=== PATIENT | female | born 1985 | race Caucasian/White ===

== ENCOUNTER 2021-02-10 18:22 | Emergency (ER) | payer OTHER, SELFPAY ==
[2021-02-10 18:25] VITALS: PULSE 110; RESP 18; TEMP 37.3; O2SAT 100
[2021-02-10 18:50] LABS: Add Manual Diff / Slide Review NO; Basophils Absolute Auto 100 /uL (0-100); Basophils Percent Auto 0.5 % (0-2); Eosinophils Absolute Auto 100 /uL (0-450); Eosinophils Percent Auto 0.5 % (2-4); Hematocrit 40.7 % (36-46); Hemoglobin 14.4 g/dL (12.0-16.0); Lymphocytes Absolute Auto 3400 /uL (1100-4500); Lymphocytes Percent Auto 24.8 % (25-40); Mean Corpuscular HGB Conc 35.5 % (30-36); Mean Corpuscular Hemoglobin 30.5 PG (26-34); Mean Corpuscular Volume 85.8 fL (80-100); Monocytes Absolute Auto 700 /uL (0-900); Monocytes Percent Auto 5.2 % (3-14); Neutrophils Absolute Auto 9600 /uL (1500-7000); Platelet Count 501 X10^3/uL (150-400); Red Blood Cell Count 4.74 X10^6/uL (4.0-5.2); Red Cell Distribution Width 12.9 % (11.6-14.8); White Blood Cell Count 13.9 X10^3/uL (4.5-11.0)
[2021-02-10 19:04] LABS: Alanine Aminotransferase 57 IU/L (<35); Albumin 4.8 g/dL (3.5-5.0); Albumin Globulin Ratio 1.4 (1.0-2.8); Alkaline Phosphatase 71 U/L (38-126); Aspartate Aminotransferase 43 IU/L (14-36); BUN Creatinine Ratio 12.5 (6-22); Bilirubin Total 0.4 mg/dL (0.2-1.3); Blood Urea Nitrogen 8 mg/dL (7-17); Calcium 9.7 mg/dL (8.4-10.2); Carbon Dioxide 25 mmol/L (22-32); Chloride 104 mmol/L (98-107); Estimated Glomerular Filt Rate > 60.0 mL/min (>60); Globulin 3.5 g/dL (1.7-4.1); Glucose 97 mg/dL (70-100); HEMOLYSIS < 15 (0-50); Lipase 192 U/L (23-300); Potassium 3.8 mmol/L (3.4-5.1); Sodium 140 mmol/L (137-145); Total Protein 8.3 g/dL (6.3-8.2)
[2021-02-10 23:52] VITALS: BP 112/57; PULSE 104; RESP 20; TEMP 37; O2SAT 98
[2021-02-11] MEDS: SODIUM CHLORIDE 0.9% 1,000 ML 1000 ML IV
[2021-02-11] MEDS: HYDROMORPHONE 0.5 MG INJ IV
[2021-02-11] MEDS: ONDANSETRON 4 MG/2 ML INJ IV
--- NOTE | 2021-02-11 00:59 | ED.ABDPAIN ---
HPI - Abdominal Pain General Chief Complaint: Abdominal Pain Stated Complaint: Severe Low Back Pain, Burning Abd Pain Time Seen by Provider: 02/11/21 00:32 Source: patient Mode of arrival: Ambulatory History of Present Illness HPI narrative: Patient is a 35-year-old female thrombocytosis who presents with low back pain radiating around to her abdomen ongoing for the last 3 weeks. She was seen evaluated at urgent care she has blood work and CT done with contrast there was some concern for appendicitis at that time. However CT was negative blood work was reassuring and she was discharged home. She says since then she has had some intermittent loose stools sometimes diarrhea however the last 2 days has been soft and formed. She occasionally has some nausea. Today she has increasing lower abdominal pain which is a burning sensation up into her epigastric area. She has no numbness or tingling down her legs no changes in bowel or bladder incontinence she denies any fever or chills. She denies any painful urination but she does have frequent urination. She denies any vaginal discharge. She said that she previously had a placenta previa with her daughter she knew that there was something wrong and she was told frequently by physicians that there was nothing wrong so she is quite fearful that something may be happening. She says that she has taken Tylenol for pain she has only taken 2 once a day. She is quite fearful of taking any medication she has a strong family history of abuse including alcoholism drug addiction his she does not take anything. He has an IUD that is placed. Related Data Home Medications Medication Instructions Recorded Confirmed levonorgestrel 20 mcg/24 hours (7 INTRAUTERINE each 09/19/18 09/19/18 yrs) 52 mg intrauterine device (Mirena) Previous Rx's Medication Instructions Recorded hydrocodone 5 mg-acetaminophen 325 1 tab PO Q6H PRN #10 tab 02/11/21 mg tablet ondansetron 4 mg disintegrating 4 mg PO Q8H PRN #10 tab 02/11/21 tablet prednisone 20 mg tablet 20 mg PO DAILY #5 tab 02/11/21 Allergies Allergy/AdvReac Type Severity Reaction Status Date / Time latex [LATEX] Allergy Unknown Rash Unverified 06/23/17 12:11 minocycline [MINOCYCLINE] Allergy Unknown Nausea/Vomi Unverified 06/23/17 12:11 ting/Dizzin ess Review of Systems Review of Systems Narrative: GENERAL: Denies chills, fatigue, malaise, fever, sweats, travel HEENT: Denies sinus pain, ear pain, sore throat, difficulty swallowing, neck pain RESPIRATORY: Denies dyspnea, cough, wheezing, hemoptysis, sputum. CARDIOVASCULAR: Denies chest pain, palpitations, orthopnea, edema GASTROINTESTINAL: see HPI : Denies dysuria, frequency, incontinence, hematuria, urinary retention, flank pain. MUSCULOSKELETAL: Denies weakness, joint pain, or bony pain SKIN: No rash, no erythema, no pruritus NEUROLOGIC: Denies weakness, dizziness, headache, numbness, change in speech, confusion PSYCHIATRIC: No concerning psychosocial issues. 12 point review of systems is negative except for those stated above and HPI Patient History Surgical History (Updated 07/13/17 @ 05:48 by Conversion Provider) Status post laminectomy Family History (Updated 03/21/15 @ 00:00 by Conversion Provider) Father Age: 68 ETOH abuse Grandfather Stroke Grandfather Cancer Social History Smoking Status: Never smoker Smoking Status: Never smoker Exam Initial Vital Signs Initial Vital Signs: Vital Signs Temperature 99.1 F 02/10/21 18:25 Pulse Rate 110 H 02/10/21 18:25 Respiratory Rate 18 02/10/21 18:25 Pulse Oximetry 100 02/10/21 18:25 GENERAL: Tearful 35-year-old female HEENT: Head atraumatic,EOMI, pupils reactive, face symmetric, moist mucous membranes CARDIOVASCULAR: Regular rate and rhythm without murmurs, rubs or gallops. RESPIRATORY: Breath sounds equal bilaterally, no wheezes rales or rhonchi. ABDOMEN: Soft, nontender. Normoactive bowel sounds all 4 quadrants. No guarding or rebound. BACK: No vertebral tenderness no step-off. Mild lumbar pain EXTREMITIES: Normal range of motion, no clubbing or edema. Neurovascularly intact NEUROLOGICAL: Alert and oriented x4.Normal gait and speech. SKIN: Warm, dry, no laceration, no petechiae, no rashes or lesions. Course Orders Ordered: ED Orders 02/11/21 00:55 COVID19 -Nasal swab/Pre-Proc Stat 02/11/21 00:58 Procalcitonin Stat 02/11/21 01:04 CT abdomen pelvis w con Stat 02/11/21 01:11 Lactate (Lactic Acid) Stat Discontinued Medications Hydrocodone Bitart/Acetaminophen (Hydrocodone/Acet 5/325 Prepack) 1 bottle MISC SEEINSTR ONE Stop: 02/11/21 02:34 Last Admin: 02/11/21 02:52 Dose: 1 bottle Documented by: JOSE MANUEL Hydromorphone HCl (Hydromorphone 0.5 Mg Inj) 0.5 mg IV NOW ONE Stop: 02/10/21 23:52 Last Admin: 02/11/21 00:00 Dose: 0.5 mg Documented by: JOSE MANUEL Sodium Chloride (Normal Saline 0.9%) 1,000 mls @ 1,000 mls/hr IV BOLUS ONE Stop: 02/11/21 00:50 Last Infusion: 02/11/21 01:24 Dose: 0 mls/hr Documented by: JOSE MANUEL Admin: 02/11/21 00:00 Dose: 1,000 mls/hr Documented by: JOSE MANUEL Ketorolac Tromethamine (Ketorolac 30 Mg/Ml Vial) 15 mg IV NOW ONE Stop: 02/11/21 02:34 Last Admin: 02/11/21 02:52 Dose: 15 mg Documented by: JOSE MANUEL Ondansetron HCl (Ondansetron 4 Mg/2 Ml Inj) 4 mg IV NOW ONE Stop: 02/10/21 23:52 Last Admin: 02/11/21 00:00 Dose: 4 mg Documented by: JOSE MANUEL Ondansetron HCl (Ondansetron 4 Mg Odt Prepack) 1 bottle MISC SEEINSTR ONE Stop: 02/11/21 02:34 Last Admin: 02/11/21 02:52 Dose: 1 bottle Documented by: JOSE MANUEL Vital Signs Vital signs: Vital Signs - 8 hr 02/10/21 23:52 02/11/21 02:26 02/11/21 02:38 Temperature 98.6 F 98.9 F Pulse Rate 104 H 110 H Respiratory Rate 20 18 Blood Pressure 112/57 L 114/52 L Pulse Oximetry 98 97 MDM - Abdominal Pain Lab Data Result diagrams: 02/10/21 18:38 02/10/21 18:38 Labs: Lab Results 02/10/21 02/10/21 02/10/21 Range/Units 18:38 18:38 18:38 WBC 13.9 H (4.5-11.0) X10^3/uL RBC 4.74 (4.0-5.2) X10^6/uL Hgb 14.4 (12.0-16.0) g/dL Hct 40.7 (36-46) % MCV 85.8 (80-100) fL MCH 30.5 (26-34) PG MCHC 35.5 (30-36) % RDW 12.9 (11.6-14.8) % Plt Count 501 H (150-400) X10^3/uL Neut % (Auto) 69.0 (50-75) % Lymph % (Auto) 24.8 L (25-40) % [place] % (Auto) 5.2 (3-14) % Eos % (Auto) 0.5 L (2-4) % Baso % (Auto) 0.5 (0-2) % Neut # (Auto) 9600 H (9495-8364) /uL Lymph # (Auto) 3400 (9278-4410) /uL [place] # (Auto) 700 (0-900) /uL Eos # (Auto) 100 (0-450) /uL Baso # (Auto) 100 (0-100) /uL Sodium 140 (137-145) mmol/L Potassium 3.8 (3.4-5.1) mmol/L Chloride 104 (98-107) mmol/L Carbon Dioxide 25 (22-32) mmol/L BUN 8 (7-17) mg/dL Creatinine 0.64 (0.52-1.04) mg/dL Estimated GFR > 60.0 (>60) mL/min BUN/Creatinine Ratio 12.5 (6-22) Glucose 97 (70-100) mg/dL Lactate (0.7-2.1) mmol/L Calcium 9.7 (8.4-10.2) mg/dL Total Bilirubin 0.4 (0.2-1.3) mg/dL AST 43 H (14-36) IU/L ALT 57 H (<35) IU/L Alkaline Phosphatase 71 (38-126) U/L Total Protein 8.3 H (6.3-8.2) g/dL Albumin 4.8 (3.5-5.0) g/dL Globulin 3.5 (1.7-4.1) g/dL Albumin/Globulin Ratio 1.4 (1.0-2.8) Lipase 192 (23-300) U/L Procalcitonin 0.04 (<0.5) ng/mL SARS-CoV-2 (PCR) (Negative) 02/11/21 02/11/21 Range/Units 00:55 01:11 WBC (4.5-11.0) X10^3/uL RBC (4.0-5.2) X10^6/uL Hgb (12.0-16.0) g/dL Hct (36-46) % MCV (80-100) fL MCH (26-34) PG MCHC (30-36) % RDW (11.6-14.8) % Plt Count (150-400) X10^3/uL Neut % (Auto) (50-75) % Lymph % (Auto) (25-40) % [place] % (Auto) (3-14) % Eos % (Auto) (2-4) % Baso % (Auto) (0-2) % Neut # (Auto) (3061-5353) /uL Lymph # (Auto) (5454-8028) /uL [place] # (Auto) (0-900) /uL Eos # (Auto) (0-450) /uL Baso # (Auto) (0-100) /uL Sodium (137-145) mmol/L Potassium (3.4-5.1) mmol/L Chloride (98-107) mmol/L Carbon Dioxide (22-32) mmol/L BUN (7-17) mg/dL Creatinine (0.52-1.04) mg/dL Estimated GFR (>60) mL/min BUN/Creatinine Ratio (6-22) Glucose (70-100) mg/dL Lactate 1.0 (0.7-2.1) mmol/L Calcium (8.4-10.2) mg/dL Total Bilirubin (0.2-1.3) mg/dL AST (14-36) IU/L ALT (<35) IU/L Alkaline Phosphatase (38-126) U/L Total Protein (6.3-8.2) g/dL Albumin (3.5-5.0) g/dL Globulin (1.7-4.1) g/dL Albumin/Globulin Ratio (1.0-2.8) Lipase (23-300) U/L Procalcitonin (<0.5) ng/mL SARS-CoV-2 (PCR) Negative (Negative) Point of care testing: Point of Care Testing Test Results Negative Urine Dip Bedside Urine Glucose Negative Bedside Urine Bilirubin - Negative Bedside Urine Ketone - Negative Urine Specific [place] 1.020 Bedside Urine Occult Blood - Negative Bedside Urine pH 5.5 Bedside Urine Protein - Negative Bedside Urine Urobilinogen - Negative Bedside Urine Nitrite - Negative Imaging Data CT scan - abdomen/pelvis: Radiologist's Impression: PROCEDURE:? CT ABDOMEN PELVIS W CON ? INDICATIONS:? ongoing abdominal pain ? TECHNIQUE:? After the administration of intravenous contrast, axial sections acquired from the lung bases to the pubic symphysis.? Coronal and sagittal reformats were performed.? For radiation dose reduction, the following was used:? automated exposure control, adjustment of mA and/or kV according to patient size.? ? COMPARISON:? [facility], CT, CT ABDOMEN PELVIS WITH CONTRAST, 01/22/2021, 11:42. ? FINDINGS:? Image quality:? Excellent.? ? Lung bases:? Unremarkable. Heart:? No significant findings. ? ABDOMEN: Liver:? There is hepatomegaly, no discrete hepatic lesion. Gallbladder:? Within normal limits. Biliary ducts:? Unremarkable.? ? Pancreas:? Unremarkable.? ? Spleen:? Unremarkable.? ? Adrenal Glands:? Unremarkable.? ? Kidneys and Ureters:? Unremarkable.? ? ? Stomach and Bowel:? Stomach, small bowel loops, and colon are unremarkable.? Appendix is visualized and is within normal limits. Peritoneum:? No abnormal intraperitoneal fluid.? No free air.? ? Ventral Wall: ? No hernias.? Abdominal Nodes:? No retroperitoneal or mesenteric adenopathy by size criteria.? Vessels:? Aorta and inferior vena cava are normal in size.? ? PELVIS: Pelvic Organs:? Intrauterine device is again seen in its central endometrial location.? No gross abnormality is seen in bilateral ovaries. Bladder:? Unremarkable.? ? Pelvic Nodes: No enlarged lymph nodes.? Miscellaneous: No hernias are seen. ? ? ? Bones:? No suspicious bony lesion.? No acute vertebral body compression fracture. ? ? IMPRESSION:? 1. Normal appendix.? No bowel obstruction or abnormal bowel wall thickening.? No free fluid or free air. 2. Hepatomegaly and mild hepatic steatosis.? No discrete hepatic lesion. 3. IUD in situ unchanged from prior study.? ? ? Dictated by: Mauricio Pennington M.D. on 02/11/2021 at 1:36 MDM Narrative Medical decision making narrative: Patient is tearful. She is intermittently tachycardic unclear if this is related to pain versus crying versus other etiology. I was actually able to review some of her records on her patient portal from January 22. CT was negative blood work was reassuring. She does have mild elevation today up LFTs however still just above normal bilirubin she is nontender in her right upper quadrant unlikely to be related. She does have hepatic steatosis which remains unchanged. She does admit taking Tylenol however very few pills 1-3 daily. I Did get records from [facility] which looks as though she had EGD 1 year ago. At this time recommend further outpatient workup. She is concerned about possible ankylosing spondylitis she has got joint pain she has been googling while in the emergency department. Another possibility may also be some endometriosis. At this time she is given pain medication to go home with dilaudid has helped her in the emergency department. Discharge Plan Departure Patient Disposition: Home Clinical Impression: Abdominal pain Instructions: DI for Abdominal Pain-Adult Activity Restrictions/Additional Instructions: *You have been diagnosed with abdominal pain and back pain *What to do: At this time I recommend outpatient follow-up, possible endometriosis versus other is musculoskeletal problem. May need outpatient MRI I and further blood work. *Continue to take medications as directed Prednisone 20 mg once a day for 5 days [place] 1 tablet every 6 hours only if needed for severe pain Zofran 4 mg every 8 hours if needed for nausea vomiting *Follow up with your primary care provider in 2-3 days *Return to ER if you should have loss of urine or stool, fever, or any new, worsening or concerning symptoms Prescriptions: New hydrocodone-acetaminophen 5-325 mg tablet 1 tab PO Q6H PRN (Reason: pain) Qty: 10 0RF prednisone 20 mg tablet 20 mg PO DAILY Qty: 5 0RF ondansetron 4 mg tablet,disintegrating 4 mg PO Q8H PRN (Reason: nausea and vomiting) Qty: 10 0RF No Action Mirena 20 mcg/24 hours (5 yrs) 52 mg intrauterine device intrauterine 0RF Referrals: Yudy Amezquita ARNP [Primary Care Provider] -
--- NOTE | 2021-02-11 01:04 | DI.CT.S_ITS ---
PROCEDURE: CT ABDOMEN PELVIS W CON INDICATIONS: ongoing abdominal pain TECHNIQUE: After the administration of intravenous contrast, axial sections acquired from the lung bases to the pubic symphysis. Coronal and sagittal reformats were performed. For radiation dose reduction, the following was used: automated exposure control, adjustment of mA and/or kV according to patient size. COMPARISON: [facility], CT, CT ABDOMEN PELVIS WITH CONTRAST, 01/22/2021, 11:42. FINDINGS: Image quality: Excellent. Lung bases: Unremarkable. Heart: No significant findings. ABDOMEN: Liver: There is hepatomegaly, no discrete hepatic lesion. Gallbladder: Within normal limits. Biliary ducts: Unremarkable. Pancreas: Unremarkable. Spleen: Unremarkable. Adrenal Glands: Unremarkable. Kidneys and Ureters: Unremarkable. Stomach and Bowel: Stomach, small bowel loops, and colon are unremarkable. Appendix is visualized and is within normal limits. Peritoneum: No abnormal intraperitoneal fluid. No free air. Ventral Wall: No hernias. Abdominal Nodes: No retroperitoneal or mesenteric adenopathy by size criteria. Vessels: Aorta and inferior vena cava are normal in size. PELVIS: Pelvic Organs: Intrauterine device is again seen in its central endometrial location. No gross abnormality is seen in bilateral ovaries. Bladder: Unremarkable. Pelvic Nodes: No enlarged lymph nodes. Miscellaneous: No hernias are seen. Bones: No suspicious bony lesion. No acute vertebral body compression fracture. IMPRESSION: 1. Normal appendix. No bowel obstruction or abnormal bowel wall thickening. No free fluid or free air. 2. Hepatomegaly and mild hepatic steatosis. No discrete hepatic lesion. 3. IUD in situ unchanged from prior study. Dictated by: Mauricio Pennington M.D. on 02/11/2021 at 1:36 Approved by: Mauricio Pennington M.D. on 02/11/2021 at 1:39
[2021-02-11 01:21] LABS: COVID19 -Nasal RAPID Negative (Negative)
[2021-02-11 01:42] LABS: Procalcitonin 0.04 ng/mL (<0.5)
[2021-02-11 02:26] VITALS: BP 114/52; PULSE 110; RESP 18; O2SAT 97
[2021-02-11 02:38] VITALS: TEMP 37.2
[2021-02-11] MEDS: KETOROLAC 30 MG/ML VIAL 15 MG IV (02:52)
[2021-02-11] MEDS: HYDROCODONE/ACET 5/325 PREPACK 1 BOTTLE MISC (02:52)
[2021-02-11] MEDS: ONDANSETRON 4 MG ODT PREPACK 1 BOTTLE MISC (02:52)
== END 2021-02-11 03:05 | disposition home or self-care (01) ==
PROVIDERS: Emergency Provider Emergency Medicine; PCP Nurse Practitioner Family
DX: R10.30 Lower abdominal pain, unspecified (principal); M54.50 Low back pain, unspecified
CPT/HCPCS: 36415; 74177; 80053; 81003; 81025; 83605; 83690; 84145; 85025; 87635; 96361; 96374; 96375; 99284; C9803; J1170; J1885; J2405; Q9967